=== PATIENT | female | born 1980 | race Caucasian/White ===

== ENCOUNTER 2016-07-15 09:44 | Emergency (ER) | payer BC, OTHER ==
[2016-07-15 09:59] VITALS: BMI 21.0
[2016-07-15] MEDS ORDERED: SODIUM CHLORIDE 500 ML IV STA (10:14)
--- NOTE | 2016-07-15 10:38 | PDOC ---
History of Present Illness - History of Present Illness Initial Comments: 07/15/16 11:14 Patient is a 35 year old female with significant medical hx of diverticulitis who is has been sent to the ED by PMD for rule out SBO. Patient complains of five days of abdominal pain that she describes as sharp and stabbing. She reports her abdominal pain is mostly diffuse but more tender towards the LLQ. She endorses some constipation and had a small BM this morning but does not feel completely satisfied. The patient also reports associated fever of 101 she had this morning, along with some chest pain and lower back pain. She saw her PMD today who referred her to the ED. Denies chills, nausea, vomiting, and diarrhea. PMD: Torie Saavedra MD <Yusra Horowitz - Last Filed: 07/15/16 16:45> <Anand Valadez - Last Filed: 07/15/16 17:02> - General Chief Complaint: Pain Stated Complaint: ABD PAIN, FEVER Time Seen by Provider: 07/15/16 10:14 Past History <Yusra Horowitz - Last Filed: 07/15/16 16:45> - Past Medical History Anemia: No Asthma: No Cancer: No Cardiac Disorders: No CVA: No COPD: No CHF: No Dementia: No Diabetes: No GI Disorders: Yes (DIARRHEA,diverticulitis) Disorders: No HTN: No Hypercholesterolemia: No Liver Disease: No Seizures: No Thyroid Disease: No - Surgical History Abdominal Surgery: No Appendectomy: No Cardiac Surgery: No Cholecystectomy: No Lung Surgery: No Neurologic Surgery: No Orthopedic Surgery: No - Psycho/Social/Smoking Cessation Hx Anxiety: No Suicidal Ideation: No Smoking History: Never smoked Have you smoked in the past 12 months: No If you are a former smoker, when did you quit?: 2007 Information on smoking cessation initiated: No Hx Alcohol Use: No Drug/Substance Use Hx: No Substance Use Type: None Hx Substance Use Treatment: No <Anand Valadez - Last Filed: 07/15/16 17:02> - Past Medical History Allergies/Adverse Reactions: Allergies Allergy/AdvReac Type Severity Reaction Status Date / Time No Known Allergies Allergy Verified 07/15/16 09:56 Home Medications: Ambulatory Orders NK [No Known Home Medication] 07/15/16 Review of Systems - Review of Systems Comments:: 07/15/16 11:16 GENERAL/CONSTITUTIONAL: Fever. No chills. No weakness. HEAD, EYES, EARS, NOSE AND THROAT: No change in vision. No ear pain or discharge. No sore throat. CARDIOVASCULAR: Chest pain. No shortness of breath. RESPIRATORY: No cough, wheezing, or hemoptysis. GASTROINTESTINAL: Abdominal pain. Constipation. No nausea, vomiting, or diarrhea. GENITOURINARY: No dysuria, frequency, or change in urination. MUSCULOSKELETAL: Lower back pain. No joint or muscle swelling or pain. No neck pain. SKIN: No rash NEUROLOGIC: No headache, vertigo, loss of consciousness, or change in strength/ sensation. <Yusra Horowitz - Last Filed: 07/15/16 16:45> *Physical Exam - Vital Signs Last Vital Signs Temp Pulse Resp BP Pulse Ox 99.8 F H 108 H 18 119/90 97 07/15/16 09:57 07/15/16 09:57 07/15/16 09:57 07/15/16 09:57 07/15/16 09:57 - Physical Exam Comments: 07/15/16 11:18 GENERAL: Awake, alert, and fully oriented, in no acute distress HEAD: No signs of trauma EYES: PERRLA, EOMI, sclera anicteric, conjunctiva clear ENT: Auricles normal inspection, hearing grossly normal, nares patent, oropharynx clear without exudates. Moist mucosa NECK: Normal ROM, supple, no lymphadenopathy, JVD, or masses LUNGS: Breath sounds equal, clear to auscultation bilaterally. No wheezes, and no crackles HEART: Regular rate and rhythm, normal S1 and S2, no murmurs, rubs or gallops ABDOMEN: Bilateral lower quadrant tenderness with voluntary guarding. Normoactive bowel sounds. No masses EXTREMITIES: Normal range of motion, no edema. No clubbing or cyanosis. No cords, erythema, or tenderness NEUROLOGICAL: Cranial nerves II through XII grossly intact. Normal speech, normal gait SKIN: Warm, Dry, normal turgor, no rashes or lesions noted. ENDOCRINE: No increased thirst. No abnormal weight change. HEMATOLOGIC/LYMPHATIC: No anemia, easy bleeding, or history of blood clots. ALLERGIC/IMMUNOLOGIC: No hives or skin allergy. <Yusra Horowitz - Last Filed: 07/15/16 16:45> - Vital Signs Last Vital Signs Temp Pulse Resp BP Pulse Ox 99.8 F H 108 H 18 119/90 97 07/15/16 09:57 07/15/16 09:57 07/15/16 09:57 07/15/16 09:57 07/15/16 09:57 <Anand Valadez - Last Filed: 07/15/16 17:02> ED Treatment Course - LABORATORY CBC & Chemistry Diagram: 07/15/16 11:00 07/15/16 11:00 - RADIOLOGY Radiograph Interpretation: 07/15/16 14:40 Abdomen/Pelvis CT Impression: Large right adnexal cyst which is in a low position, the surrounding ovarian parenchyma is enhancing normally and there is no CT evidence to suggest torsion, there is a small amount of fluid in the floor the pelvis. There are no signs of endometritis. There is a dilated left ovarian vein with no signs of pelvic congestion syndrome. Normal appendix and terminal ileum with normal cecum and bowel including small bowel with no mesenteric abscess or mesenteric fluid observed. Reported By: Brody Esquivel MD 07/15/16 16:45 Transvaginal US Impression: Right ovarian cyst/corpus luteum cyst measuring 3.3 x 2.3 cm. Normal vascular flow in both ovaries. The uterus and endometrial stripe appear unremarkable. Reported By: Jayla Julien MD <Yusra Horowitz - Last Filed: 07/15/16 16:45> - LABORATORY CBC & Chemistry Diagram: 07/15/16 11:00 07/15/16 11:00 - RADIOLOGY Radiology Studies Ordered: Category Date Time Status ABDOMEN & PELVIS CT WITH CONTR [CT] Stat CT Scan 07/15/16 10:16 Ordered <Anand Valadez - Last Filed: 07/15/16 17:02> Medical Decision Making - Medical Decision Making 07/15/16 14:01 pATIENT HAD A TERMINATION OF PROCEDURE 2 WEEKS AGO, ACCOUNTING FOR THE POSITIVE HCG <Anand Valadez - Last Filed: 07/15/16 17:02> *DC/Admit/Observation/Transfer - Attestations Scribe Attestion: 07/15/16 11:19 Documentation prepared by Yusra Horowitz, acting as emergency medical technician/driver for Anand Valadez MD. <Yusra Horowitz - Last Filed: 07/15/16 16:45> <Anand Valadez - Last Filed: 07/15/16 17:02> Diagnosis at time of Disposition: Abdominal pain Qualifiers: Abdominal location: lower abdomen, unspecified Qualified Code(s): R10.30 - Lower abdominal pain, unspecified Constipation Qualifiers: Constipation type: unspecified constipation type Qualified Code(s): K59.00 - Constipation, unspecified - Discharge Dispostion Disposition: HOME Condition at time of disposition: Good - Referrals Referrals: Torei Saavedra MD [Primary Care Provider] - - Patient Instructions Printed Discharge Instructions: DI for Constipation Additional Instructions: Allyn- Sorry this hurts so much.... Both your ultrasound and your CT scan results are ok.... it does look like you have quite a bit of stool in the colon though. Please eat some prunes or drink some prune juice. IF that does not work try a fleets enema(just ask the pharmacist if you don't know which one to buy- they are all over the counter). If you don't have a good result and you are still having some discomfort, see Dr. Dangelo on Monday. Return to us if worse or new symptoms occur. Best- Dr. Anand Valadez
[2016-07-15] MEDS ORDERED: HYDROmorphone HCL CARPU-JECT 2 MG/1 ML DISP.SYRIN IVPUSH ONE (11:02)
[2016-07-15] MEDS ORDERED: ONDANSETRON 4 MG/2 ML VIAL IVPB ONE (11:02)
[2016-07-15] MEDS ORDERED: ONDANSETRON 4 MG/2 ML VIAL ONE (11:12)
[2016-07-15] MEDS ORDERED: morphine CARPU-JECT 4 MG/1 ML DISP.SYRIN ONE (11:12)
[2016-07-15] MEDS ORDERED: morphine CARPU-JECT 4 MG/1 ML DISP.SYRIN IVPUSH ONE (11:17)
[2016-07-15 11:36] LABS: BASOPHIL 0.1 % (0-2.0); MCHC 33.3 g/dl (32.0-36.0); MEAN CELL VOLUME 90.2 fl (80-96); MEAN PLT VOLUME 8.6 fl (7.5-11.1); NEUTROPHILS 78.6 % (42.8-82.8); PLATELET COUNT 229 K/MM3 (134-434); RDW 12.7 % (11.6-15.6); WHITE BLOOD COUNT 8.1 K/mm3 (4.0-10.0)
[2016-07-15 11:39] LABS: URINE APPEARANCE CLEAR; URINE BILIRUBIN NEGATIVE (NEGATIVE); URINE BLOOD NEGATIVE (NEGATIVE); URINE COLOR STRAW; URINE GLUCOSE (UA) NEGATIVE (NEGATIVE); URINE KETONE TRACE (NEGATIVE); URINE NITRITE NEGATIVE (NEGATIVE); URINE PROTEIN NEGATIVE (NEGATIVE); URINE UROBILINOGEN NEGATIVE E.U./dl (0.2-1.0)
[2016-07-15 11:41] LABS: URINE LEUK ESTERASE TRACE (NEGATIVE)
[2016-07-15 11:42] LABS: URINE BACTERIA RARE /hpf (NONE SEEN); URINE MUCUS RARE; URINE RBC <1 /hpf (0-3); URINE WBC 2 /hpf (3-5)
[2016-07-15 12:04] LABS: ALBUMIN 3.6 g/dl (3.4-5.0); ALK PHOS 74 U/L (45-117); ANION GAP 8 (8-16); BILIRUBIN,TOTAL 0.4 mg/dL (0.2-1.0); CALCIUM 8.8 mg/dL (8.5-10.1); CO2 26 mmol/L (21-32); GLUCOSE,RANDOM 87 mg/dL (74-106); SGOT/AST 15 U/L (15-37); SGPT/ALT 24 U/L (12-78); TOT PROT 7.8 g/dl (6.4-8.2)
[2016-07-15] MEDS ORDERED: KETOROLAC TROMETHAMINE 30 MG/1 ML VIAL ONE (15:15)
[2016-07-15] MEDS ORDERED: KETOROLAC TROMETHAMINE 30 MG/1 ML VIAL IVPUSH ONE (15:15)
[2016-07-15 16:39] VITALS: TEMP 98.3
[2016-07-15 17:19] VITALS: BP 117/64; PULSE 82
--- NOTE | 2016-07-16 14:55 | EKG ---
Test Reason : Blood Pressure : / mmHG Vent. Rate : 104 BPM Atrial Rate : 104 BPM P-R Int : 140 ms QRS Dur : 072 ms QT Int : 328 ms P-R-T Axes : 064 050 066 degrees QTc Int : 431 ms SINUS TACHYCARDIA POSSIBLE LEFT ATRIAL ENLARGEMENT SEPTAL INFARCT , AGE UNDETERMINED ABNORMAL ECG NO PREVIOUS ECGS AVAILABLE Confirmed by EDNA VELEZ MD ([id number]) on 07/16/2016 2:54:48 PM Referred By: Confirmed By:EDNA VELEZ MD
== END 2016-07-15 17:19 | disposition home or self-care (01) ==
LOC: JER 09:44
PROC: 3E0337Z Introduction of Electrolytic and Water Balance Substance into Peripheral Vein, Percutaneous Approach (ICD-10-PCS; principal; 2016-07-15)
PROC: 3E033NZ Introduction of Analgesics, Hypnotics, Sedatives into Peripheral Vein, Percutaneous Approach (ICD-10-PCS; 2016-07-15)
PROC: 3E0333Z Introduction of Anti-inflammatory into Peripheral Vein, Percutaneous Approach (ICD-10-PCS; 2016-07-15)
PROC: 3E033GC Introduction of Other Therapeutic Substance into Peripheral Vein, Percutaneous Approach (ICD-10-PCS; 2016-07-15)
DX: R10.30 Lower abdominal pain, unspecified (principal); K59.00 Constipation, unspecified; N83.11 Corpus luteum cyst of right ovary
CPT/HCPCS: 36415; 74177-TC; 76830-TC; 76856-TC; 80053; 81003; 81015; 83690; 84702; 84703; 85025; 93005; 93010; 99283-25; Q9967

== ENCOUNTER 2016-07-24 21:12 | Emergency (ER) | payer BC, OTHER ==
[2016-07-24 21:36] VITALS: BMI 21.0
[2016-07-24 22:20] LABS: BASOPHIL 0.5 % (0-2.0); EOSINOPHIL 0.1 % (0-4.5); MCH 30.1 pg (25.7-33.7); MCHC 34.2 g/dl (32.0-36.0); MEAN PLT VOLUME 8.2 fl (7.5-11.1); NEUTROPHILS 86.5 % (42.8-82.8); PLATELET COUNT 264 K/MM3 (134-434); RDW 12.5 % (11.6-15.6); WHITE BLOOD COUNT 12.1 K/mm3 (4.0-10.0)
[2016-07-24 22:38] LABS: INR 1.11 (0.82-1.09); PROTHROMBIN TIME (PATIENT) 12.2 SEC (9.98-11.88)
[2016-07-24 22:42] VITALS: TEMP 99.2
[2016-07-24] MEDS ORDERED: morphine CARPU-JECT 4 MG/1 ML DISP.SYRIN IVPUSH ONE (22:50)
[2016-07-24] MEDS ORDERED: SODIUM CHLORIDE 1,000 ML IV STA (22:50)
[2016-07-24 22:51] LABS: ALBUMIN 3.2 g/dl (3.4-5.0); ANION GAP 8 (8-16); BILIRUBIN,TOTAL 0.4 mg/dL (0.2-1.0); CALCIUM 8.5 mg/dL (8.5-10.1); CO2 25 mmol/L (21-32); GLUCOSE,RANDOM 127 mg/dL (74-106); SGOT/AST 16 U/L (15-37); SGPT/ALT 18 U/L (12-78); TOT PROT 6.5 g/dl (6.4-8.2)
[2016-07-24 22:52] LABS: ALK PHOS 60 U/L (45-117)
[2016-07-24] MEDS ORDERED: morphine CARPU-JECT 4 MG/1 ML DISP.SYRIN ONE (23:34)
--- NOTE | 2016-07-25 01:59 | PDOC ---
History of Present Illness - General Chief Complaint: Pain, Acute Stated Complaint: ABDOMINAL PAIN, FEVER, VOMITING Time Seen by Provider: 07/24/16 21:45 History Source: Patient Exam Limitations: No Limitations - History of Present Illness Travel History: No Initial Comments: 07/25/16 01:51 35yo Female patient presents to ED c/o worsening abdominal pain. Patient states she was seen in this ED approximately 2 weeks ago (07/15/2016), and was diagnosed with constipation. Patient reports hx: Constipation, stomach ulcers and Diverticulitis. She returns due to worsening of abdominal pain, fever (100.8 ), n/v. Patient also notes she had D&C on Jul 02. Denies vaginal bleeding at this time. Denies any other complaints at this time. Timing/Duration: reports: getting worse Quality: reports: moderate Abdominal Pain Onset Location: reports: generalized abdomen Pain Radiation: reports: no radiation Activities at Onset: reports: no specific activity Treatment Prior to Arrive: worse with: analgesics, antacids, cold pack, heat, laxative, enema, other Aggravating Factors: worse with: None, Defecation, Eating, Emotional upset, Exertion, [place], Movement, Voiding, Change in position Alleviating Factors: worse with: None, Belching, Shallow Breathing, Defecation, Eating, Holding Breath, Passing Gas, Change in Position, Rest, Voiding, Vomiting Past History - Travel Traveled outside of the country in the last 30 days: No Close contact w/someone who was outside of country & ill: No - Past Medical History Allergies/Adverse Reactions: Allergies Allergy/AdvReac Type Severity Reaction Status Date / Time No Known Allergies Allergy Verified 07/24/16 21:34 Home Medications: Ambulatory Orders Famotidine [Pepcid] 20 mg PO BID #14 tablet 07/25/16 Anemia: No Asthma: No Cancer: No Cardiac Disorders: No CVA: No COPD: No CHF: No Dementia: No Diabetes: No GI Disorders: Yes (DIARRHEA,diverticulitis) Disorders: No HTN: No Hypercholesterolemia: No Liver Disease: No Seizures: No Thyroid Disease: No - Surgical History Abdominal Surgery: No Appendectomy: No Cardiac Surgery: No Cholecystectomy: No Lung Surgery: No Neurologic Surgery: No Orthopedic Surgery: No - Psycho/Social/Smoking Cessation Hx Anxiety: No Suicidal Ideation: No Smoking History: Never smoked Have you smoked in the past 12 months: No If you are a former smoker, when did you quit?: 2007 Hx Alcohol Use: No Drug/Substance Use Hx: No Substance Use Type: None Hx Substance Use Treatment: No Abd/GI Specific PMHX - Complaint Specific PMHX Colitis: No Diverticulitis: Yes Gall Bladder Disease: No GERD: No Hepatitis: No Irritable Bowel Synd (IBS): No Pancreatitis: No GI Ulcer Disease: No Review of Systems - Review of Systems Able to Perform ROS?: Yes Is the patient limited Jordanian proficient: No Constitutional: Yes: Fever. No: Chills Respiratory: No: Cough, Shortness of Breath, Wheezing Cardiac (ROS): No: Chest Pain, Palpitations, Syncope, Chest Tightness ABD/GI: Yes: Nausea, Vomiting, Other (Abdominal Pain). No: Constipated, Diarrhea, Poor Appetite, Poor Fluid Intake : No: Dysuria, Discharge, Frequency, Flank Pain, Hematuria, Pain, Urgency Musculoskeletal: No: Back Pain Integumentary: No: Erythema, Rash All Other Systems: Reviewed and Negative *Physical Exam - Vital Signs Last Vital Signs Temp Pulse Resp BP Pulse Ox 99.2 F 123 H 18 132/85 100 07/24/16 22:05 07/24/16 21:35 07/24/16 21:35 07/24/16 21:35 07/24/16 21:35 - Physical Exam General Appearance: Yes: Nourished, Appropriately Dressed. No: Apparent Distress, Mild Distress, Moderate Distress, Severe Distress Respiratory/Chest: positive: Lungs Clear, Normal Breath Sounds. negative: Respiratory Distress, Accessory Muscle Use, Labored Respiration, Rapid RR Cardiovascular: positive: Regular Rhythm, Regular Rate Gastrointestinal/Abdominal: positive: Soft, Increased Bowel Sounds, Rebound, Tenderness (Generalized). negative: Distended, Guarding Musculoskeletal: positive: Normal Inspection. negative: CVA Tenderness Extremity: positive: Normal Capillary Refill, Normal Inspection, Normal Range of Motion Integumentary: positive: Normal Color, Dry, Warm Neurologic: positive: longitudinal float operator II-XII NML intact, Fully Oriented, Alert, Normal Mood/ Affect, Normal Response, Motor Strength 5/5 ED Treatment Course - LABORATORY CBC & Chemistry Diagram: 07/24/16 22:10 07/24/16 22:10 - ADDITIONAL ORDERS Additional order review: Laboratory Results 07/24/16 07/24/1617 22:10 22:10 22:10 INR 1.11 Sodium 137 Potassium 3.6 Chloride 104 Carbon Dioxide 25 Anion Gap 8 BUN 7 D Creatinine 1.0 Creat Clearance w eGFR > 60 Random Glucose 127 H D Lactic Acid 0.865 Calcium 8.5 Total Bilirubin 0.4 AST 16 ALT 18 D Alkaline Phosphatase 60 Total Protein 6.5 Albumin 3.2 L Lipase 71 L 07/24/16 22:10 RBC 4.34 MCV 88.0 MCHC 34.2 RDW 12.5 MPV 8.2 Neutrophils % 86.5 H Lymphocytes % 7.3 L D Monocytes % 5.6 Eosinophils % 0.1 D Basophils % 0.5 D - RADIOLOGY Radiology Studies Ordered: Category Date Time Status ABDOMEN & PELVIS CT WITH CONTR [CT] Stat CT Scan 07/25/16 00:24 Ordered - Medications Given in the ED: ED Medications Discontinued Medications Generic Name Dose Route Start Last Admin Trade Name Freq PRN Reason Stop Dose Admin Sodium Chloride 1,000 mls @ 1,000 mls/hr 07/24/16 22:50 07/24/16 23:37 Normal Saline - IV 07/24/16 23:49 1,000 mls/hr ASDIR STA Administration Morphine Sulfate 4 mg 07/24/16 22:50 07/24/16 23:37 Morphine Injection - IVPUSH 07/24/16 22:51 4 mg ONCE ONE Administration *DC/Admit/Observation/Transfer Diagnosis at time of Disposition: Gastroenteritis - Discharge Dispostion Disposition: HOME Condition at time of disposition: Improved Admit: No - Prescriptions Prescriptions: Famotidine [Pepcid] 20 mg PO BID #14 tablet - Referrals Referrals: Torie Saavedra MD [Primary Care Provider] - Mike Peralta MD [Staff Physician] - - Patient Instructions Printed Discharge Instructions: DI for Viral Gastroenteritis -- Adult Additional Instructions: FOLLOW UP WITH DR. PERALTA (GASTROENTEROLOGY). CALL TO SCHEDULE APPOINTMENT. TAKE MEDICATIONS PRESCRIBED. AVOID SPICY FOODS, GREASY FOODS, SODA. TRY BRAT DIET. BANANA, RICE, APPLESAUCE, TOAST. START WITH LIGHT FOOD AND PROCEED TOLERATED. Print Language: [id number] - Post Discharge Activity Work/School Note: Back to Work
[2016-07-25 03:38] LABS: URINE APPEARANCE CLEAR; URINE BILIRUBIN NEGATIVE (NEGATIVE); URINE BLOOD NEGATIVE (NEGATIVE); URINE COLOR COLORLESS; URINE GLUCOSE (UA) NEGATIVE (NEGATIVE); URINE KETONE NEGATIVE (NEGATIVE); URINE LEUK ESTERASE NEGATIVE (NEGATIVE); URINE NITRITE NEGATIVE (NEGATIVE); URINE PROTEIN NEGATIVE (NEGATIVE); URINE UROBILINOGEN NEGATIVE E.U./dl (0.2-1.0)
[2016-07-25 03:57] VITALS: BP 121/67; PULSE 84
== END 2016-07-25 04:11 | disposition home or self-care (01) ==
LOC: JER 21:12
PROC: 3E033NZ Introduction of Analgesics, Hypnotics, Sedatives into Peripheral Vein, Percutaneous Approach (ICD-10-PCS; principal; 2016-07-24)
DX: K52.9 Noninfective gastroenteritis and colitis, unspecified (principal); Z98.890 Other specified postprocedural states
CPT/HCPCS: 36415; 74177-TC; 80053; 81003; 83605; 83690; 84702; 85025; 85610; 87086; 99283-25

== ENCOUNTER 2020-08-14 07:44 | Day surgery (SDC) | payer BC, OTHER ==
[2020-08-11 09:25] VITALS: BMI 21.7
[~2020-08-14 07:44] MED LIST: BUPIVACAINE HCL/PF 0.25% (2.5MG/ML) 10 ML VIAL IJ ONE
[2020-08-14] MEDS ORDERED: LIDOCAINE HCL/PF 2% SDV 5ML VIAL ONE (08:04)
[2020-08-14] MEDS ORDERED: MIDAZOLAM HCL 2 MG/2 ML SINGLE DOSE VIAL ONE (08:05)
[2020-08-14] MEDS ORDERED: PROPOFOL 20 ML ONE (08:05)
[2020-08-14] MEDS ORDERED: BUPIVACAINE HCL/PF 2.5 MG/ML - 30 ML VIAL IJ ONE (08:19)
[2020-08-14] MEDS ORDERED: ONDANSETRON 4 MG/2 ML VIAL ONE (08:48)
[2020-08-14] MEDS ORDERED: DEXAMETHASONE SOD PHOSPHATE 4 MG/1 ML VIAL ONE (08:48)
[2020-08-14] MEDS ORDERED: ceFAZolin SODIUM 1 GM VIAL ONE (08:53)
[2020-08-14] MEDS ORDERED: EPHEDRINE SULFATE/0.9% NACL/PF 50 MG/10 ML SYRINGE NR ONE (09:12)
[2020-08-14] MEDS ORDERED: BUPIVACAINE HCL/PF 0.25% (2.5MG/ML) 10 ML VIAL IJ ONE (09:20)
[2020-08-14] MEDS ORDERED: oxyCODONE HCL 5 MG TABLET PO PRN ×2 (10:09)
[2020-08-14] MEDS ORDERED: ONDANSETRON 4 MG/2 ML VIAL IVPUSH PRN (10:09)
[2020-08-14] MEDS ORDERED: LACTATED RINGERS SOLUTION 1,000 ML IV SCH (10:15)
[2020-08-14 10:46] VITALS: TEMP 97.7
[2020-08-14 12:20] VITALS: BP 104/62; PULSE 74
== END 2020-08-14 12:20 | disposition home or self-care (01) ==
LOC: FASU 07:44
PROVIDERS: ATTEND Orthopaedic Surgery
PROC: 0SBD4ZZ Excision of Left Knee Joint, Percutaneous Endoscopic Approach (ICD-10-PCS; 2020-08-14)
PROC: 0SBD4ZZ Excision of Left Knee Joint, Percutaneous Endoscopic Approach (ICD-10-PCS; principal; 2020-08-14 09:04)
DX: S83.242A Other tear of medial meniscus, current injury, left knee, initial encounter (principal); S83.282A Other tear of lateral meniscus, current injury, left knee, initial encounter; S83.8X2A Sprain of other specified parts of left knee, initial encounter; M65.862 Other synovitis and tenosynovitis, left lower leg; Y92.9 Unspecified place or not applicable; Y93.9 Activity, unspecified
CPT/HCPCS: 81025; 94760

== ENCOUNTER 2023-03-27 04:27 | Day surgery (SDC) | payer BC, OTHER ==
[2023-03-23 18:06] VITALS: BMI 22.8
[2023-03-27] MEDS ORDERED: BUPIVACAINE HCL/PF 0.5% (5MG/ML) 10 ML VIAL ONE (07:44)
[2023-03-27] MEDS ORDERED: PROPOFOL 20 ML ONE (09:36)
[2023-03-27] MEDS ORDERED: FENTANYL CITRATE/PF 50 MCG/ML VIAL ONE (09:36)
[2023-03-27] MEDS ORDERED: ROCURONIUM BROMIDE 50 MG/5 ML SYRINGE ONE (09:37)
[2023-03-27] MEDS ORDERED: SUCCINYLCHOLINE CHLORIDE 200 MG/10 ML SYRINGE ONE (09:43)
[2023-03-27] MEDS ORDERED: DEXTROSE 50%-WATER 25 GM/50 ML DISP.SYRIN ONE (09:55)
[2023-03-27] MEDS ORDERED: KETOROLAC TROMETHAMINE 30 MG/1 ML VIAL ONE (09:55)
[2023-03-27] MEDS ORDERED: ONDANSETRON 4 MG/2 ML VIAL ONE (09:55)
[2023-03-27] MEDS ORDERED: DEXAMETHASONE SOD PHOSPHATE 4 MG/1 ML VIAL ONE (09:55)
[2023-03-27] MEDS ORDERED: ceFAZolin 2 GRAM PREMIX BAG IVPB ONE (10:00)
[2023-03-27] MEDS ORDERED: NEOSTIGMINE METHYLSULFATE 0.5 MG/1 ML - 10 ML MDV ONE (10:34)
[2023-03-27] MEDS ORDERED: GLYCOPYRROLATE 0.2 MG/1 ML VIAL ONE ×2 (10:34)
[2023-03-27] MEDS ORDERED: BUPIVACAINE HCL/PF 0.5% (5MG/ML) 10 ML VIAL IJ ONE (10:42)
[2023-03-27] MEDS ORDERED: ONDANSETRON 4 MG/2 ML VIAL IVPUSH PRN (10:51)
[2023-03-27] MEDS ORDERED: oxyCODONE HCL 5 MG TABLET PO PRN (10:51)
[2023-03-27] MEDS ORDERED: LACTATED RINGERS SOLUTION 1,000 ML IV SCH (11:00)
[2023-03-27 12:23] VITALS: RESP 16
[2023-03-27 13:08] VITALS: BP 133/82; PULSE 69; TEMP 98.6
== END 2023-03-27 13:20 | disposition home or self-care (01) ==
LOC: JASU-SURG 04:27
PROVIDERS: ATTEND Obstetrics & Gynecology
PROC: 0UB74ZZ Excision of Bilateral Fallopian Tubes, Percutaneous Endoscopic Approach (ICD-10-PCS; principal; 2023-03-27 09:00)
DX: Z30.2 Encounter for sterilization (principal)
CPT/HCPCS: 81025; 88305-TC; 94760